=== PATIENT | female | born 1985 | race Caucasian/White ===

== ENCOUNTER → 2018-10-30 18:51 | Observation (INO) ==
--- NOTE | 2018-10-30 18:05 | OB/GYN Progress Note ---
Date of Encounter: 10/30/18 Time of Encounter: 18:03 - Assessment and Plan (1) 38 weeks gestation of Current Visit: Yes Status: Acute Patient has been receiving routine care in my office (2) False labor Current Visit: Yes Status: Acute Labor warning signs. Patient scheduled for induction of labor on 11/10 Subjective - Subjective Principal diagnosis: 38 week labor evaluation Interval history: The patient presents reporting some increasing lower back pain and spotty disch arge today. Fetus is been active. She has had no active vaginal bleeding or loss of fluid. She was about a half-hour away and was concerned whether she was starting to become active in labor. She lost her mucous plug yesterday with lots of slimy mucousy discharge. Antepartum ROS: movement normal, no loss of fluid, no vaginal bleeding Objective - Vital Signs Vital Signs: Intake and Output 10/30/18 10/30/18 10/30/18 07:59 15:59 23:59 Other: Weight 86.545 kg Patient Weight 10/30/18 23:59 Weight 86.545 kg - Exam FHR: category 1 (130s baseline) Abdomen: Present: soft, gravid Uterus: Absent: tenderness Cervical dilation: 3 Cervix effacement: 80 station: -2 Comments: per RN - Allied health notes Allied health notes reviewed: nursing
== END | disposition home or self-care (01) ==
LOC: 1NENULAB
PROVIDERS: ADMIT Obstetrics & Gynecology; ATTEND Obstetrics & Gynecology

== ENCOUNTER 2018-11-05 13:44 | Observation (INO) ==
[2018-11-05 14:35] LABS: Amphetamine Screen,Urine Negative ng/mL (Cutoff=1000); Barbiturate Screen,Urine Negative ng/mL (Cutoff=200); Benzodiazepines Screen,Urine Negative ng/mL (Cutoff=200); Cannabinoid Screen,Urine Negative ng/mL (Cutoff = 50); Cocaine Screen,Urine Negative ng/mL (Cutoff= 300); Opiate Screen,Urine Negative ng/mL (Cutoff=300); Phencyclidine Screen,Urine Negative ng/mL (Cutoff=25)
--- NOTE | 2018-11-05 14:55 | Discharge Summary ---
Date of Encounter: 11/05/18 Time of Encounter: 14:46 - Discharge Diagnosis (1) False labor Priority: Primary Status: Acute Comments: Subjective: 33yo at 38+6wks GA who presents for ROL, spotting. Patient with UTD PNC with Dr. Byrnes, scheduled for IOL next week at 39+4wks GA (11/10/2018). Uncomplicated , obstetrically speaking. 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 RH positive status. S/p TDAP. Patient reports having spotting for the past week or so. Last seen on Friday, with SVE: . Presents today with very active fetus. Reports light pink-carter hued discharge. Thinned with mucus. No contraction(S). No leaking of fluid. PNB: GBS POSITIVE 1hr Glucola: 107, passed HIV 1/2 negative (nonreactive) RPR negative Varicella immune Rubella immune Hx of abnormal PAP: HSIL (LEEP COMPLETED) HBsAg negative UDS negative Objective: Examination: SVE: , unchanged from last 2 visits; no spotting or vaginal bleeding Abdomen: soft, nonTTP A/P: 33yo at 38+6wks GA, ruled out for labor, no vaginal bleeding appreciated 1. ROL - SVE unchanged: - NST reactive and reassuring with no decels, multiple 15x15 accels - no contractions appreciated on toco, patient comfortable - no blood on examination - given labor precaution(S) - GBS negative, vertex - HX of LEEP procedure Dispo: DC to home with labor precaution(S). Scheduled for IOL on 11/10/2018. MD RACHEL - Discharge Medications Prescriptions: No Action Aspirin [[place] Aspirin EC] 81 mg PO DAILY Pnv95/Ferrous Fumarate/FA [ Vitamin Tablet] 1 tab PO DAILY Home Medications: Aspirin [[place] Aspirin EC] 81 mg PO DAILY 11/05/18 [History] Pnv95/Ferrous Fumarate/FA [ Vitamin Tablet] 1 tab PO DAILY 11/05/18 [History] Allergies/Adverse Reactions: Allergy/AdvReac Type Severity Reaction Status Date / Time No Known Allergies Allergy Verified 11/05/18 14:02 Data Procedures and tests throughout hospitalization: Laboratory Tests 11/05/18 14:04 Urine Opiates Screen Negative Ur Buprenorphine Scrn Negative Ur Barbiturates Screen Negative Ur Phencyclidine Scrn Negative Ur Amphetamines Screen Negative U Benzodiazepines Scrn Negative Urine Cocaine Screen Negative U Marijuana (THC) Screen Negative Ur Drug Screen Interp See Below Labs on day of discharge: Labs from last 24 hours 11/05/18 14:04 Urine Opiates Screen Negative Ur Buprenorphine Scrn Negative Ur Barbiturates Screen Negative Ur Phencyclidine Scrn Negative Ur Amphetamines Screen Negative U Benzodiazepines Scrn Negative Urine Cocaine Screen Negative U Marijuana (THC) Screen Negative Ur Drug Screen Interp See Below Date of admission: 11/05/18 13:44 Primary care physician: Torres Cabello MD Discharging clinician: Claudette Kaminski Anticipated date of discharge: 11/05/18 - Patient Status Disposition: Home, Self-Care Condition: Good Functional capacity at discharge: independent ambulation Overall status at discharge: patient is back to baseline - Discharge Instructions Follow Up With: Torres Cabello MD [Primary Care Provider] - - Diet and Activity Activity: increase activity as tolerated 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
== END 2018-11-05 14:55 | disposition home or self-care (01) ==
LOC: 1NENULAB
PROVIDERS: ADMIT Registered Nurse; ATTEND Registered Nurse

== ENCOUNTER 2018-11-10 05:28 | Inpatient (IN) ==
[2018-11-10] MEDS ORDERED: Famotidine 20 MG/2 ML VIAL IVP PRN (05:47)
[2018-11-10] MEDS ORDERED: Naloxone 0.4 MG/ML INJ IVP PRN (05:47)
[2018-11-10] MEDS ORDERED: *HR* Nalbuphine 10 MG/ML AMPUL IVP PRN (05:47)
[2018-11-10] MEDS ORDERED: miSOPROStol 25 MCG TABLET PO PRN (05:47)
[2018-11-10] MEDS ORDERED: Metoclopramide 10 MG/2 ML VIAL IVP PRN (05:47)
[2018-11-10] MEDS ORDERED: Penicillin G Potassium 5,000,000 UNIT in 0.9 % Sodium Chloride Mini Bag 100 ML IVPB ONE (05:51)
[2018-11-10] MEDS ORDERED: Ringers Solution, Lactated 1,000 ML IVC SCH (06:00)
[2018-11-10] MEDS ORDERED: D5% in 0.45% NACL 1,000 ML IVC SCH (06:00)
[2018-11-10] MEDS ORDERED: Epidural Premix (fent/bupiv) 110 ML EP SCH (06:15)
[2018-11-10 06:41] LABS: Basophils % 0.1 %; Eosinophils % 0.4 %; Hematocrit 37.1 % (35.3-44.9); Hemoglobin 12.5 g/dL (11.5-15.4); Immature Granulocytes % 0.9 % (0-4); Lymphocytes # 2.1 K/mcL (0.6-4.6); Lymphocytes % 22.9 %; Mean Corpuscular HGB Conc 33.7 g/dL (31.6-35.5); Mean Corpuscular Hemoglobin 29.8 pg (28.0-33.3); Mean Corpuscular Volume 88.3 fL (83.0-100.0); Mean Platelet Volume 10.9 fL (9.4-12.4); Monocytes # 0.8 K/mcL (0.0-1.3); Monocytes % 8.5 %; Neutrophils # 6.2 K/mcL (1.6-8.9); Platelet Count 198 K/mcL (140-400); Red Cell Distribution Width 13.3 % (11.5-14.5); Segmented Neutrophils % 67.2 %; White Blood Count 9.3 K/mcL (4.3-11.1)
--- NOTE | 2018-11-10 06:46 | Anesthesia Evaluation PreOp ---
<Misael Cabello Tawanna - Last Filed: 11/10/18 06:10> Date of Encounter: 11/10/18 - Past History Planned Operation: Del, Alcohol Use: none Drug use: none Medications and Allergies Aspirin [[place] Aspirin EC] 81 mg PO DAILY 11/05/18 [History] Pnv95/Ferrous Fumarate/FA [ Vitamin Tablet] 1 tab PO DAILY 11/05/18 [H istory] Allergy/AdvReac Type Severity Reaction Status Date / Time No Known Allergies Allergy Verified 11/10/18 05:58 <Eddie Norton - Last Filed: 11/10/18 07:58> Date of Encounter: 11/10/18 Time of Encounter: 07:55 - Past History Planned Operation: guadalupe Cardiac History: Denies any Significant Hx Pulmonary History: Denies Any Significant HX 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: Denies Any Significant HX Other Medical History: GERD Anesthesia History: No Prior Anesthetic Complications : Yes Test: Positive Alcohol Use: none Drug use: none - Meds/Allergy Pre-op Review Medications Reviewed: Yes Allergies Reviewed: Yes Beta Blockers on Current Med List: No Anesthesia Results - Labs 11/10/18 06:20 Anesthesia Exam 144/85 100 16 fht 112 Height: 5'8" Weight: 87 k Pain Scale: 3 Pain Scale Used: Numeric (1 - 10) - HEENT Pupil (Motor): Pupils equal Mallampati: II Teeth: Normal Oral Opening: Greater than 3 - ELECTRONIC MASKING SYSTEM OPERATOR LOC: Oriented ELECTRONIC MASKING SYSTEM OPERATOR Motor: Normal RUE, Normal LUE, Normal RLE, Normal LLE, Normal Face ELECTRONIC MASKING SYSTEM OPERATOR Sensory: Normal: RUE, LUE, RLE, LLE, Face - Cardiac Rhythm: Regular Murmur: None - Pulmonary Breath Sounds: bilateral Clear Respiratory Effort: Symmetrical Anesthesia Assess/Plan ASA Score: 2 Level of consciousness: Cooperative Anesthetic Plan: Epidural (risks discussed, questions answerred, consented) Autologous Blood: No Monitoring Plan: Standard Monitors Recovery Plan: Other
--- NOTE | 2018-11-10 07:55 | OB/GYN History & Physical ---
Date of Encounter: 11/10/18 Time of Encounter: 07:51 Assessment and Plan (1) 39 weeks gestation of Current visit: Yes Status: Acute The patient has received care throughout her . She is requesting an elective induction of labor (2) Encounter for induction of labor Current visit: Yes Status: Acute The patient has given verbal consent. She has been started with oral Cytotec. Pain management per request (3) GBS (group B Streptococcus carrier), +RV culture, currently Current visit: Yes Status: Acute GBS prophylaxis with penicillin (4) Hx LEEP (loop electrosurgical excision procedure), cervix, Current visit: Yes Status: Acute The patient has had stable cervical exams throughout the without symptoms of labor Qualifiers: Trimester: third trimester Qualified Code(s): O34.43 - Maternal care for other abnormalities of cervix, third trimester; Z98.890 - Other specified postprocedural states History of Present Illness Chief complaint: IOL HPI: Ms. Heredia is a 33 year old female with an LMP of 02/02/18 and an EDC of 11/13/18 by LMP and 8 week ultrasound who presents to labor and delivery for an induction of labor at 39 weeks and 4 days. Her was complicated by history of a LEEP procedure, 2 spontaneous abortions GBS positive and a marginal placenta previa. The previa resolved on ultrasound. The patient had reassuring cervical length and had delivered at term after the LEEP with her previous . She is receiving penicillin for GBS prophylaxis. She is presenting for an induction of labor and has signed informed consent. Her blood type is B+, she is rubella immune, varicella immune, hepatitis B surface antigen ne gative and GBS positive. Past Med Surg Social Fam HX - Past Medical History Source: patient, old records reviewed Medical history: other (Varicose veins, cervical dysplasia) Psychiatric history: no psych history - Past Surgical History Surgical History: other (LEEP procedure) - Social History Smoking Status: Never smoker Smokeless Tobacco Status: No Alcohol use: none Drug use: none Occupational status: employed Current living situation: Home - Independent Activity Level: Independent ambulation - Family History Mother Living Status: Still Living Hx Family Cardiac Disorders: Yes (HTN) Hx Family Respiratory Disorders: No Hx Family Cancer: No Hx Family GI Disorders: No Hx Family Endocrine Disorder: No Hx Family Neuromuscular Disorders: No Hx Family Neurologic Disorders: No Hx Family HEENT Disorders: No Hx Family Autoimmune Disorders: No Obstetrical History - Pregnancies : 4 Term: 1 : 0 Ab's: 2 Livin Medications and Allergies Aspirin [[place] Aspirin EC] 81 mg PO DAILY 11/05/18 [History] Pnv95/Ferrous Fumarate/FA [ Vitamin Tablet] 1 tab PO DAILY 11/05/18 [History] Allergy/AdvReac Type Severity Reaction Status Date / Time No Known Allergies Allergy Verified 11/10/18 05:58 Review of System OB - Constitutional Constitutional ROS IM: weight gain - Muscloskeletal Musculoskeletal: arthralgias Exam - Vital Signs Vital signs: Afebrile, vital signs stable. heart tones 130s baseline, CAT 1. Contractions every 6-8 minutes after 50 MCG's of Cytotec given at approximately 6:45 AM - Constitutional Constitutional: well developed, well nourished, no acute distress, average body habitus - HEENT HEENT: Normocephaly, Mucus Membranes Moist - Neck Neck exam: normal inspection, supple - Lungs Respiratory exam: CTAB - Cardiovascular Cardiovascular exam: RRR - Breasts Breast: bilateral: normal (Gravid) - Abdomen Abdomen: Present: bowel sounds normal, gravid, non tender - Extremities Extremities exam: warm Deep Tendon Reflex Grade: 3+ Normal But Brisk - Vulva Vulva: bilateral: normal - Vagina Vagina: Present: normal moisture - Cervix Dilation: 4 Effacement: 80 Station: -1 (vtx) - Anus/Rectum Anus/Rectum: Present: normal perianal skin - Comments Comments: Amniotomy was performed with a small amount of clear fluid. Patient tolerated well. Results Result Diagrams: 11/10/18 06:20 All other labs normal. - VTE Reasons for not Prescribing Prophylaxis: Treatment not Indicated - Low risk for VTE
[2018-11-10] MEDS ORDERED: Ropivacaine/PF 0.2% 20 ML VIAL EP ONE (07:59)
[2018-11-10] MEDS ORDERED: Penicillin G Potassium 2,500,000 UNIT in 0.9 % Sodium Chloride 100 ML IVPB SCH (08:00)
[2018-11-10] MEDS ORDERED: Ropivacaine/PF 0.2% 20 ML VIAL ONE (08:01)
--- NOTE | 2018-11-10 08:28 | Anesthesia Procedures ---
Date of Encounter: 11/10/18 Time of Encounter: 08:26 Procedures: Anesthesia - Epidural/Spinal Patient ID/Chart reviewed: Yes Patient examined: Yes OB Eval: Gestational age: 39 OB Eval: : 4 OB Eval: Hx Para: 1 OB Eval: Dilated at (cm): 4 OB Eval: Contractions: Non-stressed pattern Consent Obtained: Yes Supplemental Oxygen: None/Room Air Site Prep: Aseptic Technique, Sterile prep and drape, 0.5% Chlorhexidine/Alcohol Patient position: upright Local Anesthetic: Lidocaine 1% Amount of Local Anesthetic used: 3 Touhy Needle Gauge: 18 Touhy Needle Depth (cm): 7 Catheter Depth at Skin (cm): 15 Test Dose (1.5% Lido + Epi): Volume given (mls): 3 Test Dose Result: Negative Loading Dose: Fentanyl (mcg): 100 Loading Dose: Other: ropivacaine 0.2% 5cc Loading Dose Administered: Thru Touhy Needle Infusion Med: 0.125% Bupivacaine w/ 2 mcg/ml Fentanyl Infusion Rate (mls/hr): 15 (pcea 5cc q30") Catheter Secured in Place: Tegaderm Interspace Used: L2-L3 Loss of Resistance (AMANDA): Yes Blood: No CSF: No Paresthesia: No Procedure: aseptic, tolerated well, VSS, effective Vitals + FHT's: 124/80 96 16 fht 124
[2018-11-10 09:53] LABS: Amphetamine Screen,Urine Negative ng/mL (Cutoff=1000); Barbiturate Screen,Urine Negative ng/mL (Cutoff=200); Benzodiazepines Screen,Urine Negative ng/mL (Cutoff=200); Cannabinoid Screen,Urine Negative ng/mL (Cutoff = 50); Cocaine Screen,Urine Negative ng/mL (Cutoff= 300); Opiate Screen,Urine Negative ng/mL (Cutoff=300); Phencyclidine Screen,Urine Negative ng/mL (Cutoff=25)
[2018-11-10] MEDS ORDERED: Oxytocin 20 units/ LR 1000 mL 20 UNIT/1,000 ML BAG IVC SCH ×2 (11:30→12:45)
[2018-11-10] MEDS ORDERED: Oxytocin 20 units/ LR 1000 mL 20 UNIT/1,000 ML BAG IVC ONE (11:31)
--- NOTE | 2018-11-10 12:49 | OB/GYN Procedure Note ---
Delivery - Delivery Date: 11/10/18 Provider: Elida Coates Intrapartum events: none Delivery induction: misoprostol Delivery augmentation: rupture of membranes, pitocin Delivery monitor: external FHT, external uterine Anesthesia: epidural Quantitated Blood Loss: 50 - Infant (s) A Delivery Date: 11/10/18 Delivery Time: 12:22 Presentation: vertex Position: CHRIS Route of delivery: Gender: Female Viability: Viable Pounds: 8 Ounces: 11 Weight Gram: 3.955 kg at 1 minute: 8 at 5 mins: 9 Shoulder Dystocia: not encountered Placenta: spontaneous Cord: 3 umbilical vessels - Repair Episiotomy: none Laceration Description: Perineal - 1st Degree (Repaired with 3-0 Monocryl) - Complications Delivery complications: none Delivery comments: The patient was complete and pushing with epidural anesthesia with a spontaneous vaginal delivery after approximately 3 contractions of a vigorous female weighing 8 lbs. 11 oz. with Apgars of 8 at 1 minute and 9 at 5 minutes. Infant was handed to the mother and the nursery care team. Cord was clamped and cut after pulsation ceased. Cord segment was obtained. Placenta was delivered spontaneous and intact. Three-vessel cord confirmed. First-degree perineal laceration was identified and repaired with 3-0 Monocryl in a running nonlocking fashion with good hemostasis identified. No other lacerations noted. Both mother and were recovering in stable condition in the LDR. Estimated blood loss 50 mL's. Complications none. - Disposition Mom disposition: stable in LDR [place] disposition: stable in LDR
[2018-11-10] MEDS: Ibuprofen 600 MG TABLET PO SCH (20:11)
[2018-11-10] MEDS: Acetaminophen 325 MG TABLET PO SCH (23:41)
[2018-11-11] MEDS: Ibuprofen 600 MG TABLET PO SCH ×2 (08:13)
[2018-11-11] MEDS: Acetaminophen 325 MG TABLET PO SCH (08:13)
[2018-11-11 08:39] VITALS: BP 117/78
[2018-11-11] MEDS ORDERED: Prenatal Vit/FA 1 EACH TABLET PO SCH (09:00)
--- NOTE | 2018-11-11 09:24 | Discharge Summary ---
Date of Encounter: 11/11/18 Time of Encounter: 09:19 - Discharge Diagnosis (1) Vaginal delivery Priority: Primary Status: Acute Comments: Continue routine care discharge home today follow up with Dr. Coates in 4-6 weeks. - Discharge Medications Prescriptions: New Ibuprofen [Motrin] 600 mg PO Q6HR #60 tablet Continued Pnv95/Ferrous Fumarate/FA [ Vitamin Tablet] 1 tab PO DAILY Discontinued Aspirin [[place] Aspirin EC] 81 mg PO DAILY Home Medications: Pnv95/Ferrous Fumarate/FA [ Vitamin Tablet] 1 tab PO DAILY 11/05/18 [History] Ibuprofen [Motrin] 600 mg PO Q6HR #60 tablet 11/11/18 [Rx] Allergies/Adverse Reactions: Allergy/AdvReac Type Severity Reaction Status Date / Time No Known Allergies Allergy Verified 11/10/18 05:58 Data Procedures and tests throughout hospitalization: Laboratory Tests 11/10/18 11/10/18 06:20 06:20 WBC 9.3 RBC 4.20 Hgb 12.5 Hct 37.1 MCV 88.3 MCH 29.8 MCHC 33.7 RDW 13.3 Plt Count 198 MPV 10.9 Immature Gran % 0.9 Seg Neutrophils % 67.2 Lymphocytes % 22.9 Monocytes % 8.5 Eosinophils % 0.4 Basophils % 0.1 Neutrophils # 6.2 Lymphocytes # 2.1 Monocytes # 0.8 Eosinophils # 0.0 Basophils # 0.0 Urine Opiates Screen Negative Ur Buprenorphine Scrn Negative Ur Barbiturates Screen Negative Ur Phencyclidine Scrn Negative Ur Amphetamines Screen Negative U Benzodiazepines Scrn Negative Urine Cocaine Screen Negative U Marijuana (THC) Screen Negative Ur Drug Screen Interp See Below Labs on day of discharge: Labs from last 24 hours 11/10/18 06:20 Urine Opiates Screen Negative Ur Buprenorphine Scrn Negative Ur Barbiturates Screen Negative Ur Phencyclidine Scrn Negative Ur Amphetamines Screen Negative U Benzodiazepines Scrn Negative Urine Cocaine Screen Negative U Marijuana (THC) Screen Negative Date of admission: 11/10/18 05:28 Primary care physician: Torres Cabello MD Consults: 11/10/18 12:43 Consult to [facility] [CONS] Routine Comment: Vaginal delivery, consult needed Discharging clinician: Sabine Espinal Anticipated date of discharge: 11/11/18 - Patient Status Disposition: Home, Self-Care Condition: Good Functional capacity at discharge: independent ambulation - Discharge Instructions Follow Up With: Torres Cabello MD [Primary Care Provider] - Elida Coates MD [Partnered Physician] - - Diet and Activity Activity: increase activity as tolerated Diet: regular diet Hospital Course Reason for admission: induction of labor Delivery: Episiotomy: none Laceration: 1st degree Other procedures: none complications: none Discharge diagnosis: IUP at term delivered [place] baby: female (bottle feeding) Time Attestation: Total time spent providing and/or coordinating discharge services: Time Spent: Less than 30 minutes Exam - Constitutional Vitals: Temp Pulse Resp BP Pulse Ox 98 F 68 16 117/78 98 11/11/18 08:37 11/11/18 08:37 11/11/18 08:37 11/11/18 08:37 11/11/18 08:37 General appearance IM: A&O X 3, pleasant, answers questions appropriately - Respiratory Respiratory exam: Present: CTAB - Cardiovascular Cardiovascular exam IM: Present: RRR, +S1, +S2 - GI/Abdominal GI/Abdominal exam IM: normal bowel sounds - Uterine Tone: Firm Uterus Position: At Umbilicus, Midline - Extremities Exam Extremities exam IM: Present: full ROM, normal capillary refill, normal inspection - Neurological Exam Neurological exam: alert, oriented X3, reflexes normal
== END 2018-11-11 14:15 | disposition home or self-care (01) | DRG 807 ==
LOC: 1NENULAB 05:28 → 1NENUOBS 15:41
PROVIDERS: ADMIT Obstetrics & Gynecology; ATTEND Obstetrics & Gynecology